=== PATIENT | female | born 1975 | race Hispanic/Latino ===

== ENCOUNTER 2018-04-27 12:39 | Emergency (ER) | payer BC ==
[~2018-04-27] VITALS: Ht 170.2 cm; Wt 81.6 kg
[~2018-04-27 12:39] MED LIST: AMLODIPINE BESYL5 MG PO
--- OUTSIDE RECORDS SUMMARY | 2018-04-27 12:41 | XMS REPORT | Clinical Summary ---
Author Author [facility] Organization [facility] Address Unknown Phone Unavailable Care Team Providers Care Tooth Cutter Spur Name Role Phone Asked, No Pcp PCP Unavailable Allergies No Known Allergies Medications End Date Status Medication Sig Dispensed Refills Start Date 08/03/2017 cephalexin (KEFLEX) 500 Take 1 40 capsule 0 MG capsule capsule (500 8 mg total) by mouth 4 (four) times a day for 10 days. 08/23/2017 promethazine (PHENERGAN) Take 1 tablet 30 tablet 0 12.5 MG tablet (12.5 mg 8 total) by mouth every 6 (six) hours as needed for nausea or vomiting for up to 30 days. Active Problems Not on file Encounters Care Team Description Date Type Specialty Lynn Leonardo MD ABDOMINOPLASTY 07/24/2017 Surgery Plastic Surgery Krish Bradshaw MD 07/24/2017 Anesthesia Plastic Surgery Event Lynn Leonardo MD 07/24/2017 Hospital Plastic Surgery Encounter Lynn Leonardo MD Preop testing (Primary Dx) 07/13/2017 Pre-Admit Pre-Admission Testing Testing Appointment after 04/26/2017 Social History Date Tobacco Use Types Packs/Day Years Used Never Smoker Smokeless Tobacco: Never Used Alcohol Use Drinks/Week oz/Week Comments No Sex Assigned at Date Recorded Not on file Industry Job Start Date Occupation Not on file Not on file Not on file Travel End Travel History Travel Start No recent travel history available. Last Filed Vital Signs Time Taken Vital Sign Reading 07/24/2017 5:35 PM CDT Blood Pressure 131/69 07/24/2017 5:35 PM CDT Pulse 99 07/24/2017 5:35 PM CDT Temperature 36.6 C (97.8 F) 07/24/2017 5:35 PM CDT Respiratory Rate 18 07/24/2017 5:35 PM CDT Oxygen Saturation 95% - Inhaled Oxygen - Concentration 07/24/2017 11:18 AM CDT Weight 90.7 kg (200 lb) 07/13/2017 10:58 AM CDT Height 172.7 cm (5' 8") 07/24/2017 11:18 AM CDT Body Mass Index 30.41 Plan of Treatment Health Maintenance Due Date Last Done Comments CERVICAL CANCER SCREENING 1998 INFLUENZA VACCINE 11/18/2017 Implants Device Identifier Shelf Expiration Date Model / Serial / Lot Implanted Type Area Manufactur er [id number] / / Drain Wound Hbls Round Radopaq Surgical N/A: N/A ETHICON Trocar Cathleen White 0.18in 15fr - Implants; DIV OF [id number] Expanders; KHALIF & Implanted: Qty: 1 on 07/24/2017 by Extenders; Lynn Monaco MD Surgical Wires 05/20/2022 [id number] / / [id number] Evacuator Bulb Cathleen 100cc Ltxf - Surgical N/A: N/A BARD [id number] Implants; MEDICAL Implanted: Qty: 1 on 07/24/2017 by Expanders; Lynn Garcia MD Extenders; Surgical Wires [id number] / / Drain Wound Hbls Round Radopaq Surgical N/A: N/A ETHICON Trocar Cathleen White 0.18in 15fr - Implants; DIV OF [id number] Expanders; KHALIF & Implanted: Qty: 1 on 07/24/2017 by Extenders; Lynn Monaco MD Surgical Wires 03/20/2022 [id number] / / [id number] Evacuator Bulb Cathleen 100cc Ltxf - Surgical N/A: N/A BARD [id number] Implants; MEDICAL Implanted: Qty: 1 on 07/24/2017 by Expanders; Lynn Garcia MD Extenders; Surgical Wires Procedures Comments Procedure Name Priority Date/Time Associated Diagnosis OR AN ELECTIVE Routine 07/24/2017 ENDOTRACHEAL AIRWAY 12:55 PM CDT Procedure Note - Zenaida Norman CRNA - 07/24/2017 12:55 PM CDT Airway Date/Time: 07/24/2017 12:57 PM Performed by: ZENAIDA NORMAN Authorized by: KRISH BRADSHAW Location: OR Urgency: Elective Difficult Airway: No Preoxygena gómez with 100% O2: Yes C-spine Precaution s Maintained Throughout : Yes Mask Ventilatio n: Assisted mask Final Airway Type: Endotrache al airway Final Endotrache al Airway: ETT Cuffed: Yes Technique Used: Direct laryngosco py Blade Type: Rollins Laryngosco pe Blade/Vide olaryngosc ope Blade Size: 2 ETT Size (mm): 7.0 Cuff at minimum occlusion pressure: Yes Measured from: Lips ETT to Lips (cm): 23 Placement Verified by: CO2 detection and direct visualizat ion Laryngosco pic view: Grade IIa - partial view of glottis Rapid Sequence Induction (RSI): No Modified RSI: No Number of Attempts at Approach: 1 LIPOSUCTION 07/24/2017 EXCESS SKIN ABDOMEN, 12:30 PM CDT L98.7 Case Notes TF, REQ 1230 START, PLAS PKG REQ 2.5 HRS( CANNOT WORK EARLIER) Special Needs TF, REQ 1230 START, PLAS PKG REQ 2.5 HRS(MD CANNOT WORK EARLIER) ABDOMINOPLASTY 07/24/2017 EXCESS SKIN ABDOMEN, 12:30 PM CDT L98.7 Case Notes TF, REQ 1230 START, PLAS PKG REQ 2.5 HRS(MD CANNOT WORK EARLIER) Special Needs TF, REQ 1230 START, PLAS PKG REQ 2.5 HRS(MD CANNOT WORK EARLIER) ZZESTIMATED GFR Routine 07/13/2017 11:07 AM CDT BASIC METABOLIC PANEL Routine 07/13/2017 Preop testing 11:07 AM CDT CBC HEMOGRAM Routine 07/13/2017 Preop testing 11:07 AM CDT after 04/26/2017 Results * Estimated GFR (07/13/2017 11:07 AM CDT) GFR Non Af Amer 80 mL/min/1.73 m2 [facility] DEPARTMENT OF PATHOLOGY AND GENOMIC MEDICINE GFR Af Amer >90 mL/min/1.73 m2 [facility] DEPARTMENT OF Comment: PATHOLOGY AND Chronic kidney disease: <60 GENOMIC MEDICINE mL/min/1.73m2 Kidney failure: <15 mL/min/1.73m2 The estimated GFR is calculated from the IDMS-traceable Modification of Diet in Renal Disease Equation. The accuracy of the calculation is poor when the creatinine is normal. Calculated values >90 mL/min/1.73m2 are not reported. This equation has not been validated in children (<18 years), women, the elderly (>70 years), or ethnic groups other than Caucasians and Americans. Specimen Plasma specimen Performing Organization Address [facility] Phone Number [address] [address] PATHOLOGY AND GENOMIC MEDICINE * CBC hemogram (07/13/2017 11:07 AM CDT) WBC 10.12 4.50 - 11.00 k/uL [facility] DEPARTMENT OF PATHOLOGY AND GENOMIC MEDICINE RBC 4.67 4.20 - 5.50 m/uL [facility] DEPARTMENT OF PATHOLOGY AND GENOMIC MEDICINE HGB 14.1 12.0 - 16.0 g/dL [facility] DEPARTMENT OF PATHOLOGY AND GENOMIC MEDICINE HCT 43.6 37.0 - 47.0 % [facility] DEPARTMENT OF PATHOLOGY AND GENOMIC MEDICINE MCV 93.4 82.0 - 100.0 fL [facility] DEPARTMENT OF PATHOLOGY AND GENOMIC MEDICINE MCH 30.2 27.0 - 34.0 pg [facility] DEPARTMENT OF PATHOLOGY AND GENOMIC MEDICINE MCHC 32.3 31.0 - 37.0 g/dL [facility] DEPARTMENT OF PATHOLOGY AND GENOMIC MEDICINE RDW - SD 44.7 37.0 - 55.0 fL [facility] DEPARTMENT OF PATHOLOGY AND GENOMIC MEDICINE MPV 9.5 8.8 - 13.2 fL [facility] DEPARTMENT OF PATHOLOGY AND GENOMIC MEDICINE Platelet count 452 (H) 150 - 400 k/uL [facility]PARTMENT OF PATHOLOGY AND GENOMIC MEDICINE Nucleated RBC 0.00 /100 WBC [facility] DEPARTMENT OF PATHOLOGY AND GENOMIC MEDICINE Specimen Blood Performing Organization Address City/[facility] Phone Number [address] [address] PATHOLOGY AND GENOMIC MEDICINE * Basic metabolic panel (07/13/2017 11:07 AM CDT) Sodium 140 135 - 148 mEq/L [facility] DEPARTMENT OF PATHOLOGY AND GENOMIC MEDICINE Potassium 4.5 3.5 - 5.0 mEq/L [facility] DEPARTMENT OF PATHOLOGY AND GENOMIC MEDICINE Chloride 98 98 - 112 mEq/L [facility] DEPARTMENT OF PATHOLOGY AND GENOMIC MEDICINE CO2 29 24 - 31 mEq/L [facility] DEPARTMENT OF PATHOLOGY AND GENOMIC MEDICINE Anion gap 13 7 - 15 mEq/L [facility] DEPARTMENT OF Comment: PATHOLOGY AND Starting from July GENOMIC MEDICINE , anion gap calculation no longer incorporates potassium. Please note the change. BUN 7 6 - 20 mg/dL [facility] DEPARTMENT OF PATHOLOGY AND GENOMIC MEDICINE Creatinine 0.8 0.5 - 0.9 mg/dL [facility] DEPARTMENT OF PATHOLOGY AND GENOMIC MEDICINE Glucose 102 (H) 65 - 99 mg/dL [facility] DEPARTMENT OF PATHOLOGY AND GENOMIC MEDICINE Calcium 9.8 8.3 - 10.2 mg/dL [facility] DEPARTMENT OF PATHOLOGY AND GENOMIC MEDICINE Specimen Plasma specimen Performing Organization Address City/State/Zipcode Phone Number [facility] DEPARTMENT OF [address] [place] [phone] PATHOLOGY AND GENOMIC MEDICINE after 04/26/2017 Advance Directives Patient has advance care planning documents on file. For more information, mildred dukes contact: Rob Cortez [address] [place] [address]
[2018-04-27] MEDS ORDERED: LABETALOL HCL 5 MG/ML 20ML VIAL IV STA (12:42)
[2018-04-27] MEDS ORDERED: LORAZEPAM INJ 2 MG/ML VIAL IV ONE ×2 (12:45→15:00)
--- NOTE | 2018-04-27 14:34 | Diagnostic Imaging Report ---
EXAMINATION: CHEST 2 VIEWS INDICATION: ^chest pain ^[id number] ^1320 COMPARISON: 04/24/2018 FINDINGS: PA and lateral views TUBES and LINES: None. LUNGS: Limited by body habitus. Lungs are well inflated. There is no evidence of pneumonia or pulmonary edema. PLEURA: No pleural effusion or pneumothorax. HEART AND MEDIASTINUM: The cardiomediastinal silhouette is unremarkable. BONES AND SOFT TISSUES: No acute osseous lesion. Soft tissues are unremarkable. UPPER ABDOMEN: No free air under the diaphragm. IMPRESSION: No acute thoracic abnormality. Signed by: Dr. Trenton Maria MD on 04/27/2018 2:30 PM
[2018-04-27] MEDS ORDERED: KETOROLAC TROMETHAMINE 30 MG/ML VIAL IV STA (14:52)
[2018-04-27] MEDS ORDERED: METHOCARBAMOL 500 MG TAB PO ONE (15:00)
[2018-04-27 15:04] LABS: BASOPHILS # (AUTO) 0.1 (0.0-0.1); BASOPHILS % 0.5 % (0.0-1.0); EOSINOPHILS % 0.2 % (0.0-6.0); HEMATOCRIT 41.8 % (34.2-44.1); HEMOGLOBIN 14.7 g/dL (12.0-16.0); LYMPHOCYTES # (AUTO) 2.3 (1.0-3.2); LYMPHOCYTES % 18.2 % (18.0-39.1); MEAN CORPUSCULAR HEMOGLOBIN 30.8 pg (28-32); MEAN CORPUSCULAR HGB CONC 35.2 g/dL (31-35); MEAN CORPUSCULAR VOLUME 87.4 fL (81-99); MONOCYTES # (AUTO) 0.8 (0.2-0.8); MONOCYTES % 6.5 % (4.4-11.3); NEUTROPHILS # (AUTO) 9.4 (2.1-6.9); NEUTROPHILS % 74.2 % (38.7-80.0); PLATELET COUNT 527 x10e3/uL (140-360); RED BLOOD COUNT 4.78 x10e6/uL (3.6-5.1); RED CELL DISTRIBUTION WIDTH 12.4 % (11.7-14.4)
[2018-04-27 15:43] LABS: ALANINE AMINOTRANSFERASE 35 IU/L (0-55); ALBUMIN 4.1 g/dL (3.5-5.0); ALBUMIN/GLOBULIN RATIO 1.1 (0.8-2.0); ALKALINE PHOSPHATASE 105 IU/L (40-150); ANION GAP 14.2 mmol/L (8-16); BLOOD UREA NITROGEN 5 mg/dL (7-26); BUN/CREATININE RATIO 6 (6-25); CALCIUM 10.2 mg/dL (8.4-10.2); CARBON DIOXIDE 22 mmol/L (22-29); CHLORIDE 104 mmol/L (98-107); CREATININE, SERUM 0.88 mg/dL (0.57-1.11); EST GLOMERULAR FILTRATION RATE > 60 ML/MIN (60-); GLUCOSE 111 mg/dL (74-118); POTASSIUM 4.2 mmol/L (3.5-5.1); SODIUM 136 mmol/L (136-145)
--- NOTE | 2018-04-27 15:46 | Diagnostic Imaging Report ---
EXAM: Renal Duplex Ultrasound INDICATION: ^Malignant Hypertension ^[id number] ^1351 COMPARISON: None TECHNIQUE: Color Doppler and waveform spectral analysis were obtained of the renal vessels and abdominal aorta. FINDINGS: Aorta PSV = 40 cm/sec Right Kidney: Main renal artery PSV: Ostium not visualized, limiting evaluation. Mid = 79.4 cm/sec Distal = 109 cm/sec Intrarenal (segmental or interlobar) arteries: Acceleration time: Normal Resistive index: Normal RA PSV/aorta PSV ratio (RAR) = 2.7 Left Kidney: Main renal artery PSV: Ostium not visualized, limiting evaluation. Mid = 44.9 cm/sec Distal = 77.8 cm/sec Intrarenal (segmental or interlobar) arteries: Acceleration time: Normal Resistive index: Normal RA PSV/aorta PSV ratio (RAR) = 1.9 Main Renal Veins: Flow Present IMPRESSION: Nonvisualization of the proximal abdominal aorta and proximal bilateral renal arteries, extremely limits evaluation for renal artery stenosis. No renal artery stenosis based on mid to distal portion of the renal artery velocity ratios. Signed by: Dr. Trenton Maria MD on 04/27/2018 3:42 PM
== END 2018-04-27 18:08 | disposition home or self-care (01) ==
LOC: ER 12:39
DX: R07.89 Other chest pain (principal); R06.02 Shortness of breath; I10 Essential (primary) hypertension
CPT/HCPCS: 36415; 71046; 80053; 84484; 85025; 93005; 93976; 99284; J1885; J2060

== ENCOUNTER 2018-10-18 23:04 | Emergency (ER) | payer BC ==
[~2018-10-18] VITALS: Ht 170.2 cm; Wt 81.6 kg
--- OUTSIDE RECORDS SUMMARY | 2018-10-18 23:06 | XMS REPORT | Clinical Summary ---
Author Author [facility] Organization [facility] Address Unknown Phone Unavailable Care Team Providers Care Computer Installation Engineer Name Role Phone Asked, No Pcp PCP Unavailable Allergies No Known Allergies Medications No known medications Active Problems Not on file Social History Date Tobacco Use Types Packs/Day Years Used Never Smoker Smokeless Tobacco: Never Used Alcohol Use Drinks/Week oz/Week Comments No Sex Assigned at Date Recorded Not on file Industry Job Start Date Occupation Not on file Not on file Not on file Travel End Travel History Travel Start No recent travel history available. Last Filed Vital Signs Not on file Plan of Treatment Health Maintenance Due Date Last Done Comments INFLUENZA VACCINE 11/18/2018 Implants Device Identifier Shelf Expiration Date Model / Serial / Lot Implanted Type Area Manufactur er 2229 / / Drain Wound Hbls Round Radopaq Surgical N/A: N/A ETHICON Trocar Cathleen White 0.18in 15fr - Implants; DIV OF [id number] ExpandersReta CUADRA & Implanted: Qty: 1 on 07/24/2017 by ExtendLynn Friend MD Surgical Wires 05/20/2022 [id number] / / [id number] Evacuator Bulb Cathleen 100cc Ltxf - Surgical N/A: N/A BARD [id number] Implants; MEDICAL Implanted: Qty: 1 on 07/24/2017 by Expandluc; Lynn Garcia MD Extendluc; Surgical Wires [id number] / / Drain Wound Hbls Round Radopaq Surgical N/A: N/A ETHICON Trocar Cathleen White 0.18in 15fr - Implants; DIV OF [id number] Expandtonya CUADRA & Implanted: Qty: 1 on 07/24/2017 by Lynn Keenan MD Surgical Wires 03/20/2022 [id number] / / [id number] Evacuator Bulb Cathleen 100cc Ltxf - Surgical N/A: N/A BARD [id number] Implants; MEDICAL Implanted: Qty: 1 on 07/24/2017 by Expanders; DIVISION Lynn Leonardo MD Extenders; Surgical Wires Results Not on fileafter 10/17/2017 Advance Directives Patient has advance care planning documents on file. For more information, mildred dukes contact: Rob Cortez [address] [place] [address]
--- OUTSIDE RECORDS SUMMARY | 2018-10-18 23:06 | XMS REPORT | Continuity of Care Document ---
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 Phone [employer] Information [employer] Unavailable Unavailable Problems Problem Status Onset Date Classification Date Reported Comments Source Body mass index 30+ - obesity 05/20/2018 Diagnosis 05/20/2018 [facility] Immunization due 05/20/2018 Diagnosis 05/20/2018 [facility] Generalized aches and pains 05/20/2018 Diagnosis 05/20/2018 [facility] Acute sinusitis 05/20/2018 Diagnosis 05/20/2018 [facility] Allergic reaction to drug 08/18/2017 Diagnosis 08/18/2017 [facility] Pruritic rash 08/18/2017 Diagnosis 08/18/2017 [facility] Acute pyelonephritis 03/14/2017 Diagnosis 03/14/2017 [facility] Acute tonsillitis 06/28/2016 Diagnosis 07/01/2016 [facility] Cough 06/28/2016 Diagnosis 07/01/2016 [facility] Acute upper respiratory infection 06/18/2016 Diagnosis 07/01/2016 [facility] Acute pharyngitis 06/18/2016 Diagnosis 07/01/2016 [facility] Urinary tract infectious disease 12/21/2015 Diagnosis 12/21/2015 [facility] ROUTINE GENERAL MEDICAL EXAMINATION AT A HEALTH CARE FACILITY Active 04/27/2014 Condition 05/12/2014 [facility] BODY MASS INDEX 29.0-29.9, ADULT Active 04/27/2014 Condition 05/12/2014 [facility] GRIEF REACTION Active 04/27/2014 Condition 05/12/2014 [facility] ROUTINE GYNECOLOGICAL EXAMINATION Active 03/15/2013 Condition 05/12/2014 [facility] MENORRHAGIA Active 03/15/2013 Condition 05/12/2014 [facility] Acute Otitis Externa Problem 03/14/2017 [facility] Acute Sinusitis Problem 03/14/2017 [facility] Pharyngitis Problem 03/14/2017 [facility] Allergic Rhinitis Problem 03/14/2017 [facility] Bronchitis Problem 03/14/2017 [facility] Urinary Tract Infectious Disease Problem 03/14/2017 [facility] Uterine leiomyoma, unspecified location Active Problem 09/11/2018 [facility] Abnormal cervical Papanicolaou smear, unspecified abnormal pap finding Active Problem 09/11/2018 [facility] Essential hypertension Active Problem 09/11/2018 [facility] Hyperglycemia Active Diagnosis 06/17/2018 [facility] Thrombocytosis Active Problem 09/11/2018 [facility] Hypergammaglobulinemia Active Problem 09/11/2018 [facility] BMI 32.0-32.9,adult Active Problem 09/11/2018 [facility] Hand, foot and mouth disease Active Diagnosis 09/07/2016 [facility] Itching Active Diagnosis 09/07/2016 [facility] Non morbid obesity due to excess calories Active Diagnosis 06/30/2017 [facility] Acute bronchitis, unspecified organism Active Diagnosis 09/11/2018 [facility] Labile hypertension Active Diagnosis 05/24/2018 [facility] Hypertensive emergency, no CHF Active Problem 04/28/2018 [facility] Medications Medication Details Route Status Patient Instructions Ordering Provider Order Date Source Bromfed DM 5 mL orally Active 2 mg-10 mg-30 mg/5 mL orally q6 hours prn cough Yanes 09/04/2016 [facility] Bromfed DM 5 mL orally Active 2 mg-10 mg-30 mg/5 mL orally q6 hours prn cough [facility] 09/04/2016 [facility] ERGOCALCIFEROL [id number] UNIT CAPS Take 1 capsule weekly Active 05/22/2014 [facility] QUARTETTE 42-21-21-7 DAYS TABS One tab by mouth daily No Longer Active 03/15/2013 [facility] Amoxicillin 875 MG Oral Tablet amoxicillin 875 mg tablet TK 1 T PO Q 12 H DIRECTED Active [facility] Azithromycin 250 MG Oral Tablet azithromycin 250 mg tablet TAKE 2 TABLETS (500 MG) BY ORAL ROUTE ONCE DAILY FOR 1 DAY THEN 1 TABLET (250 MG) BY ORAL ROUTE ONCE DAILY FOR 4 DAYS Active [facility] benzonatate 200 MG Oral Capsule benzonatate 200 mg capsule TK 1 C PO Q 8 H PRN FOR COUGH Active [facility] Brompheniramine Maleate 0.4 MG/ML / Dextromethorphan Hydrobromide 2 MG/ML / Pseudoephedrine Hydrochloride 6 MG/ML Oral Solution [Bromfed DM] Bromfed DM 2 mg-30 mg-10 mg/5 mL syrup Take 10 mL every 4-6 hours by oral route as needed. Active [facility] Cyclobenzaprine hydrochloride 10 MG Oral Tablet cyclobenzaprine 10 mg tablet TK 1 T PO TID Active [facility] Acetaminophen 325 MG / Hydrocodone Bitartrate 10 MG Oral Tablet hydrocodone 10 mg-acetaminophen 325 mg tablet TK 1 T PO Q 6 TO 8 H PRF PAIN Active [facility] Lidocaine Hydrochloride 20 MG/ML Mucous Membrane Topical Solution Lidocaine Viscous 2 % mucosal solution Take 15 mL every 3 hours by oral route as needed. Active [facility] meloxicam 15 MG Oral Tablet meloxicam 15 mg tablet TK 1 T PO QD Active [facility] methylprednisolone 4 mg tablets in a dose pack methylprednisolone 4 mg tablets in a dose pack Take 1 dose pk by oral route as directed. start 08/19/2017 Active [facility] Prednisone 20 MG Oral Tablet prednisone 20 mg tablet TK 1 T PO BID WITH MEALS FOR 3 DAYS Active [facility] 200 ACTUAT Albuterol 0.09 MG/ACTUAT Metered Dose Inhaler [ProAir] ProAir HFA 90 mcg/actuation aerosol inhaler TK 2 PUFFS PO Q 4 H PRN Active [facility] tizanidine 4 MG Oral Tablet tizanidine 4 mg tablet TK 1 T PO 8 H Active [facility] Fluticasone propionate 0.25 MG/ACTUAT / salmeterol 0.05 MG/ACTUAT Dry Powder Inhaler Advair Diskus 250 mcg-50 mcg/dose powder for inhalation INHALE ONE PUFF PO BID Active [facility] Amoxicillin 500 MG / Clavulanate 125 MG Oral Tablet amoxicillin 500 mg-potassium clavulanate 125 mg tablet TK 1 T PO TID FOR 10 DAYS Active [facility] Ampicillin 500 MG Oral Capsule ampicillin 500 mg capsule TK 1 C PO BID FOR 7 DAYS Active [facility] Cephalexin 500 MG Oral Capsule cephalexin 500 mg capsule TK 1 C PO TID Active [facility] Ciprofloxacin 3 MG/ML / Dexamethasone 1 MG/ML Otic Suspension [Ciprodex] Ciprodex 0.3 %-0.1 % ear drops,suspension INSTILL 4 DROPS INTO AFFECTED EAR(S) BY OTIC ROUTE 2 TIMES PER DAY FOR 7 DAYS Active [facility] Ciprofloxacin 500 MG Oral Tablet ciprofloxacin 500 mg tablet TK 1 T PO BID Active [facility] Fluticasone propionate 0.05 MG/ACTUAT Metered Dose Nasal [place] fluticasone 50 mcg/actuation nasal spray,suspension [place] 1 spray every day by intranasal route. Active [facility] gabapentin 300 MG Oral Capsule gabapentin 300 mg capsule Active [facility] NITROFURANTOIN, MACROCRYSTALS 25 MG / Nitrofurantoin, Monohydrate 75 MG Oral Capsule [Macrobid] Macrobid 100 mg capsule Take 1 capsule every 12 hours by oral route with meals for 7 days. Active [facility] Phenazopyridine hydrochloride 200 MG Oral Tablet phenazopyridine 200 mg tablet Take 1 tablet 3 times a day by oral route as needed for urinary discomfort. Active [facility] Promethazine Hydrochloride 25 MG Oral Tablet promethazine 25 mg tablet TK 1 T PO Q 4 TO 6 H PRF NAUSEA Active [facility] tramadol hydrochloride 50 MG Oral Tablet tramadol 50 mg tablet TK 1 TO 2 TS PO 30 MINUTES BEFORE APPOINTMENT THEN TAKE 1 T Q 6 H PRN Active [facility] 200 ACTUAT Albuterol 0.09 MG/ACTUAT Metered Dose Inhaler albuterol sulfate HFA 90 mcg/actuation aerosol inhaler Inhale 2 puffs every 4 hours by inhalation route as needed. Active [facility] 1 ML methylprednisolone acetate 80 MG/ML Injection [Depo-Medrol] Depo-Medrol 80 mg/mL suspension for injection 80 mg/mL IM injectable x 1 Active [facility] Hydroxyzine Hydrochloride 25 MG Oral Tablet hydroxyzine HCl 25 mg tablet Take 1 tablet every 6-8 hours by oral route as needed. Active [facility] Brompheniramine Maleate 0.4 MG/ML / Dextromethorphan Hydrobromide 2 MG/ML / Pseudoephedrine Hydrochloride 6 MG/ML Oral Solution afulczckpxcbgrt-xahnznlaqvvxgzs-[id number] 2 mg-30 mg-10 mg/5 mL syrup TK 5 ML PO Q 6 H PRF COUGH Active [facility] Ciprofloxacin 500 MG Oral Tablet [Cipro] Cipro 500 mg tablet Take 1 tablet every 12 hours by oral route as directed for 7 days. Active [facility] Diclofenac Sodium 1 MG/ML Ophthalmic Solution diclofenac 0.1 % eye drops INT 1 GTT IN EACH EYE BID Active [facility] Diclofenac Sodium 0.01 MG/MG Topical Gel diclofenac 1 % topical gel IMER EXT AA QID FOR 7 DAYS PRF PAIN Active [facility] Fluconazole 150 MG Oral Tablet [Diflucan] Diflucan 150 mg tablet Take 1 tablet by oral route. Active [facility] Ondansetron 8 MG Disintegrating Oral Tablet ondansetron 8 mg disintegrating tablet DIS ONE T PO BID PRN Active [facility] Phenazopyridine hydrochloride 100 MG Oral Tablet [Pyridium] Pyridium 100 mg tablet Take 1 tablet 3 times a day by oral route as directed for 2 days. Active [facility] Triamcinolone Acetonide 1 MG/ML Topical Cream triamcinolone acetonide 0.1 % topical cream IMER AA TID X7 DAYS Active [facility] Prednisone 10 MG Oral Tablet prednisone 10 mg tablet Take 1 tablet every day by oral route for 5 days. Active [facility] benzonatate 100 MG Oral Capsule [Tessalon Perles] Tessalon Perles 100 mg capsule Take 1 capsule 3 times a day by oral route for 7 days. Active [facility] Metoprolol Succinate ER 1 tab(s) orally Active 25 mg orally once a day [facility] carvedilol 1 tab(s) orally Active 12.5 mg orally 2 times a day [facility] amlodipine 1 tab(s) orally Active 2.5 mg orally twice a day [facility] losartan 1 tab(s) orally Active 50 mg orally once a day [facility] triamcinolone topical 1 imer applied topically to affected areas Active 0.1% applied topically to affected areas 3 times a day [facility] hydroxyzine 1 tab(s) orally Active hydrochloride 25 mg orally once a day at night prn itching [facility] triamcinolone topical 1 imer applied topically to affected areas Active 0.1% applied topically to affected areas 3 times a day [facility] hydroxyzine 1 tab(s) orally Active hydrochloride 25 mg orally once a day at night prn itching [facility] cefdinir 1 cap(s) orally Active 300 mg orally every 12 hours [facility] Z-pack use as directed NA Active daily [facility] Cheratussin AC 5-10 mL orally Active 10 mg-100 mg/5 mL orally every 6 hours prn cough [facility] ProAir HFA 2 puff(s) inhaled Active [facility] free 90 mcg/inh inhaled q4-6 hours prn wheezing [facility] amlodipine 1 tab(s) orally Active 5 mg orally twice a day [facility] Amlodipine Besylate 5 Mg Tablet Every [address] [facility] Allergies, Adverse Reactions, Alerts Substance Category Reaction Severity Reaction type Status Date Reported Comments Source BETADINE Drug allergy BETADINE 04/27/2014 [facility] Clindamycin Rash Moderate to Severe Allergy to substance 08/18/2017 [facility] Adverse Reaction Info Not Available Adverse Reaction Active 09/06/2018 [facility] Immunizations Immunization Date Given Site Status Last Updated Comments Source influenza, seasonal, injectable 05/21/2015 completed [facility] Tdap 05/20/2008 completed [facility] Results Order Name Results Value Reference Range Date Interpretation Comments Source RESULT negative 05/20/2018 [facility] SWAB LOCATION Left and Right tonsillar pillars 05/20/2018 [facility] Influenza A negative 05/20/2018 [facility] Influenza B negative 05/20/2018 [facility] Serum or plasma sodium measurement (moles/volume) 136 136 - 145 04/27/2018 [facility] Serum or plasma potassium measurement (moles/volume) 4.2 3.5 - 5.1 04/27/2018 [facility] Serum or plasma chloride measurement (moles/volume) 104 98 - 107 04/27/2018 [facility] Serum or plasma carbon dioxide, total measurement (moles/volume) 22 22 - 29 04/27/2018 [facility] Serum or plasma anion gap 14.2 8 - 16 04/27/2018 [facility] Serum or plasma urea nitrogen measurement (mass/volume) 5 7 - 26 04/27/2018 [facility] Serum or plasma creatinine measurement (mass/volume) 0.88 0.57 - 1.11 04/27/2018 [facility] Serum or plasma urea nitrogen/creatinine mass ratio 6 6 - 25 04/27/2018 [facility] Estimated glomerular filtration rate (GFR) determination > 60 60 04/27/2018 [facility] Glucose measurement 111 74 - 118 04/27/2018 [facility] Serum or plasma calcium measurement (mass/volume) 10.2 8.4 - 10.2 04/27/2018 [facility] Serum or plasma total bilirubin measurement (mass/volume) 1.0 0.2 - 1.2 04/27/2018 [facility] Aspartate Amino Transf (AST/SGOT) 19 5 - 34 04/27/2018 [facility] Serum or plasma alanine aminotransferase measurement (enzymatic activity/volume) 35 0 - 55 04/27/2018 [facility] Serum or plasma protein measurement (mass/volume) 7.8 6.5 - 8.1 04/27/2018 [facility] Serum or plasma albumin measurement (mass/volume) 4.1 3.5 - 5.0 04/27/2018 [facility] Plasma globulin measurement (mass/volume) 3.7 2.3 - 3.5 04/27/2018 [facility] Serum or plasma albumin/globulin mass ratio 1.1 0.8 - 2.0 04/27/2018 [facility] Serum or plasma alkaline phosphatase measurement (enzymatic activity/volume) 105 40 - 150 04/27/2018 [facility] Troponin I measurement by highly sensitive enzyme immunoassay 0.002 0 - 0.300 04/27/2018 [facility] Blood leukocytes automated count (number/volume) 12.64 4.8 - 10.8 04/27/2018 [facility] Blood erythrocytes automated count (number/volume) 4.78 3.6 - 5.1 04/27/2018 [facility] Blood hemoglobin measurement (moles/volume) 14.7 12.0 - 16.0 04/27/2018 [facility] Automated blood hematocrit (volume fraction) 41.8 34.2 - 44.1 04/27/2018 [facility] Automated erythrocyte mean corpuscular volume 87.4 81 - 99 04/27/2018 [facility] Automated erythrocyte mean corpuscular hemoglobin (mass per erythrocyte) 30.8 28 - 32 04/27/2018 [facility] Automated erythrocyte mean corpuscular hemoglobin concentration measurement (mass/volume) 35.2 31 - 35 04/27/2018 [facility] RDW BldCo-Rto 12.4 11.7 - 14.4 04/27/2018 [facility] Automated blood platelet count (count/volume) 527 140 - 360 04/27/2018 [facility] Automated blood segmented neutrophil count as percentage of total leukocytes 74.2 38.7 - 80.0 04/27/2018 [facility] Automated blood lymphocyte count as percentage ot total leukocytes 18.2 18.0 - 39.1 04/27/2018 [facility] Automated blood monocyte count as percentage of total leukocytes 6.5 4.4 - 11.3 04/27/2018 [facility] Automated blood eosinophil count as percentage of total leukocytes 0.2 0.0 - 6.0 04/27/2018 [facility] Automated blood basophil count as percentage of total leukocytes 0.5 0.0 - 1.0 04/27/2018 [facility] IM GRANULOCYTES % 0.4 0.0 - 1.0 04/27/2018 [facility] Automated blood neutrophil count 9.4 2.1 - 6.9 04/27/2018 [facility] Blood lymphocytes count (number/volume) 2.3 1.0 - 3.2 04/27/2018 [facility] Blood monocytes automated count (number/volume) 0.8 0.2 - 0.8 04/27/2018 [facility] Automated blood eosinophil count 0.0 0.0 - 0.4 04/27/2018 [facility] Automated blood basophil count (count/volume) 0.1 0.0 - 0.1 04/27/2018 [facility] Absolute Immature Granulocyte (auto 0.05 0 - 0.1 04/27/2018 [facility] Serum or plasma creatine kinase measurement (enzymatic activity/volume) 36 29 - 168 04/24/2018 [facility] Serum or plasma creatine kinase MB measurement (mass/volume) 0.30 0 - 5.0 04/24/2018 [facility] Phosphorus measurement 4.7 2.3 - 4.7 04/24/2018 [facility] Serum or plasma magnesium measurement (mass/volume) 2.2 1.3 - 2.1 04/24/2018 [facility] Urine color determination YELLOW YELLOW 04/23/2018 [facility] Urine clarity CLEAR CLEAR 04/23/2018 [facility] Specific gravity of Urine by Test strip 1.010 1.010 - 1.025 04/23/2018 [facility] Urine pH measurement by automated test strip 7 5 - 7 04/23/2018 [facility] Urine leukocyte esterase detection by dipstick NEGATIVE NEGATIVE 04/23/2018 [facility] Urine nitrite detection NEGATIVE NEGATIVE 04/23/2018 [facility] Urine protein measurement by test strip (mass/volume) NEGATIVE NEGATIVE 04/23/2018 [facility] Urine glucose detection NEGATIVE NEGATIVE 04/23/2018 [facility] Urine ketones detection by automated test strip NEGATIVE NEGATIVE 04/23/2018 [facility] Urine opiates screening test NEGATIVE NEGATIVE 04/23/2018 [facility] Barbiturates screen, urine NEGATIVE NEGATIVE 04/23/2018 [facility] Urine phencyclidine detection by screening method NEGATIVE NEGATIVE 04/23/2018 [facility] Urine amphetamines detection by screen method > 1000 ng/mL NEGATIVE NEGATIVE 04/23/2018 [facility] Urine Methamphetamines Screen NEGATIVE NEGATIVE 04/23/2018 [facility] Urine benzodiazepines detection by screening method NEGATIVE NEGATIVE 04/23/2018 [facility] Urine cocaine measurement (mass/volume) NEGATIVE NEGATIVE 04/23/2018 [facility] Urine cannabinoids detection by screening method NEGATIVE NEGATIVE 04/23/2018 [facility] Urine methadone screen NEGATIVE NEGATIVE 04/23/2018 [facility] Urine urobilinogen measurement by test strip (mass/volume) 0.2 0.2 - 1 04/23/2018 [facility] Urine total bilirubin measurement (mass/volume) NEGATIVE NEGATIVE 04/23/2018 [facility] Urine erythrocytes detection NEGATIVE NEGATIVE 04/23/2018 [facility] Automated urine sediment leukocyte count by microscopy (number/high power field) NONE 0 - 5 04/23/2018 [facility] Erythrocytes detection in urine sediment by light microscopy NONE 0 - 5 04/23/2018 [facility] Bacteria detection in urine sediment by light microscopy MODERATE NONE 04/23/2018 [facility] Epithelial cells detection in urine sediment by light microscopy MANY NONE 04/23/2018 [facility] Urine human chorionic gonadotropin (hCG) detection NEGATIVE NEGATIVE 04/23/2018 [facility] Serum or plasma thyrotropin measurement by detection limit <=0.005 miu/l (units/volume) 1.779 0.350 - 4.940 04/23/2018 [facility] Bacteria identified in Throat by Culture Bacteria identified in Unspecified specimen by Respiratory culture final report 06/30/2016 [facility] Bacteria identified in Throat by Culture Bacteria identified in Unspecified specimen by Respiratory culture rrf 06/30/2016 [facility] RESULT negative 06/28/2016 [facility] SWAB LOCATION Left and Right tonsillar pillars 06/28/2016 [facility] Influenza A negative 06/28/2016 [facility] Influenza B negative 06/28/2016 [facility] RESULT negative 06/28/2016 [facility] SWAB LOCATION Left and Right tonsillar pillars 06/28/2016 [facility] RESULT negative 06/18/2016 [facility] SWAB LOCATION Left and Right tonsillar pillars 06/18/2016 [facility] Influenza A negative 06/18/2016 [facility] Influenza B negative 06/18/2016 [facility] Urinalysis macro (dipstick) panel - Urine COLOR : Yellow 12/21/2015 [facility] Urinalysis macro (dipstick) panel - Urine CLARITY : Cloudy 12/21/2015 [facility] Urinalysis macro (dipstick) panel - Urine LEUKOCYTES : Large 12/21/2015 [facility] Urinalysis macro (dipstick) panel - Urine NITRITES : Positive 12/21/2015 [facility] Urinalysis macro (dipstick) panel - Urine UROBILINOGEN : Normal 12/21/2015 [facility] Urinalysis macro (dipstick) panel - Urine PROTEIN : Trace 12/21/2015 [facility] Urinalysis macro (dipstick) panel - Urine pH : 8.5 12/21/2015 [facility] Urinalysis macro (dipstick) panel - Urine BLOOD : Negative 12/21/2015 [facility] Urinalysis macro (dipstick) panel - Urine SPECIFIC GRAVITY : 1.010 12/21/2015 [facility] Urinalysis macro (dipstick) panel - Urine KETONES : Negative 12/21/2015 [facility] Urinalysis macro (dipstick) panel - Urine BILIRUBIN : Negative 12/21/2015 [facility] Urinalysis macro (dipstick) panel - Urine GLUCOSE Negative 12/21/2015 [facility] Chemistry CHOLESTEROL 156 - 199 05/12/2014 [facility] Chemistry TRIGLYCERIDE 120 - 149 05/12/2014 [facility] Chemistry HDL 43 >=61 05/12/2014 [facility] Chemistry LDL 89 - 99 05/12/2014 [facility] Chemistry SODIUM 137 MEQ/L 135 - 145 05/12/2014 [facility] Chemistry POTASSIUM 4.5 MEQ/L 3.5 - 5.1 05/12/2014 [facility] Chemistry CREATININE 0.9 0.5 - 1.4 05/12/2014 [facility] Chemistry BUN 8 7 - 22 05/12/2014 [facility] Chemistry BUN/CREAT 9 6 - 25 05/12/2014 [facility] Chemistry ALBUMIN 4.1 3.5 - 5.0 05/12/2014 [facility] Chemistry CALCIUM 9.2 8.5 - 10.5 05/12/2014 [facility] Chemistry SGPT (ALT) 51 0 - 65 05/12/2014 [facility] Chemistry SGOT (AST) 31 0 - 37 05/12/2014 [facility] Chemistry ALK PHOS 132 39 - 136 05/12/2014 [facility] Chemistry TSH 0.651 0.360 - 3.740 05/12/2014 [facility] Hematology HGB 12.4 12.0 - 16.0 05/12/2014 [facility] Hematology HCT 36.7 36.0 - 48.0 05/12/2014 [facility] Hematology PLATELETS 382 K/CMM 133 - 450 05/12/2014 [facility] Residential [facility]umber PAP SMEAR 02/23/2012 03/15/2013 [facility] Residential [facility] PAP SMEAR 02/23/2012 03/15/2013 [facility] Pathology Reports No Data Provided for This Section Diagnostic Reports No Data Provided for This Section Consultation Notes No Data Provided for This Section Discharge Summaries No Data Provided for This Section History and Physicals No Data Provided for This Section Vital Signs Vital Sign Value Date Comments Source Systolic (mm Hg) 132 09/06/2018 [facility] Heart Rate 106 09/06/2018 [facility] Temperature Oral (F) 97.9 F 09/06/2018 [facility] Weight 203 09/06/2018 [facility] Height 66 09/06/2018 [facility] Diastolic (mm Hg) 80 09/06/2018 [facility] Systolic (mm Hg) 160 08/26/2018 [facility] Heart Rate 119 08/26/2018 [facility] Temperature Oral (F) 98.0 F 08/26/2018 [facility] Weight 202 08/26/2018 [facility] Height 66 08/26/2018 [facility] Diastolic (mm Hg) 100 08/26/2018 [facility] Systolic (mm Hg) 140 06/16/2018 [facility] Heart Rate 91 06/16/2018 [facility] Temperature Oral (F) 97.6 F 06/16/2018 [facility] Weight 203 06/16/2018 [facility] Height 66 06/16/2018 [facility] Diastolic (mm Hg) 80 06/16/2018 [facility] Diastolic (mm Hg) 76 05/20/2018 [facility] Height 67 05/20/2018 [facility] Systolic (mm Hg) 119 05/20/2018 [facility] Weight 205 05/20/2018 [facility] Systolic (mm Hg) 150 05/17/2018 [facility] Heart Rate 112 05/17/2018 [facility] Temperature Oral (F) 98.2 F 05/17/2018 [facility] Weight 202 05/17/2018 [facility] Height 66 05/17/2018 [facility] Diastolic (mm Hg) 90 05/17/2018 [facility] Diastolic (mm Hg) 80 08/18/2017 [facility] Height 67 08/18/2017 [facility] Systolic (mm Hg) 120 08/18/2017 [facility] Weight 200 08/18/2017 [facility] Systolic (mm Hg) 150 06/29/2017 [facility] Heart Rate 102 06/29/2017 [facility] Temperature Oral (F) 98.6 F 06/29/2017 [facility] Weight 200 06/29/2017 [facility] Height 66 06/29/2017 [facility] Diastolic (mm Hg) 98 06/29/2017 [facility] Diastolic (mm Hg) 84 03/14/2017 [facility] Height 67 03/14/2017 [facility] Systolic (mm Hg) 116 03/14/2017 [facility] Systolic (mm Hg) 120 09/04/2016 [facility] Heart Rate 123 09/04/2016 [facility] Temperature Oral (F) 98.3 F 09/04/2016 [facility] Weight 207 09/04/2016 [facility] Height 66 09/04/2016 [facility] Diastolic (mm Hg) 74 09/04/2016 [facility] Diastolic (mm Hg) 86 06/28/2016 [facility] Height 67 06/28/2016 [facility] Systolic (mm Hg) 134 06/28/2016 [facility] Weight 200 06/28/2016 [facility] Diastolic (mm Hg) 78 06/18/2016 [facility] Height 67 06/18/2016 [facility] Systolic (mm Hg) 126 06/18/2016 [facility] Weight 200 06/18/2016 [facility] Diastolic (mm Hg) 84 12/21/2015 [facility] Height 67 12/21/2015 [facility] Systolic (mm Hg) 124 12/21/2015 [facility] Weight 200 12/21/2015 [facility] Height 67 04/27/2014 [facility] Weight 189.25 04/27/2014 [facility] Temperature Oral (F) 97.2 F 04/27/2014 [facility] Respitory Rate 18 04/27/2014 [facility] Systolic (mm Hg) 129 04/27/2014 [facility] Diastolic (mm Hg) 77 04/27/2014 [facility] Heart Rate 96 04/27/2014 [facility] Height 67 03/15/2013 [facility] Weight 190 03/15/2013 [facility] Systolic (mm Hg) 123 03/15/2013 [facility] Diastolic (mm Hg) 64 03/15/2013 [facility] Heart Rate 80 03/15/2013 [facility] Encounters Location Location Details Encounter Type Encounter Number Reason For Visit Attending Provider ADM Date DC Date Status Source [facility] Office Visit [id number] Toshia Monroe, [employer] 04/27/2014 04/27/2014 [facility] Lab Report [id number] Toshia Monroe, [employer] LE[employer] TESTER 05/12/2014 05/12/2014 [facility] Outpatient [id number] SOLO BERMUDEZ 05/10/2015 Active [facility] [place] - [facility] - [id number] Latoya Hernandez, OCC MED PHYSICIAN: [address], [place] [address], Ph. [id number] Latoya Hernandez 12/21/2015 [facility] [place] [facility] - [id number] Juanita Garza, OCC MED PHYSICIAN: [address], [place] [address], Ph. [id number] Juanita Garza 06/18/2016 [facility] [place] [facility] - [id number] Juanita Garza, OCC MED PHYSICIAN: [address], [place] [address], Ph. [id number] Juanita Garza 06/18/2016 [facility] [place] [facility] - [id number] Juanita Garza, OCC MED PHYSICIAN: [address], [place] [address], Ph. [id number] Juanita Garza 06/18/2016 [facility] [place] [facility] - [id number] Juanita Garza, OCC MED PHYSICIAN: [address], [place] [address], Ph. [id number] Juanita Garza 06/18/2016 [facility] [place] [facility] - [id number] Martínez, OCC MED PHYSICIAN-C: [address] [place] [address], Ph. [id number] Dipti Martínez 06/28/2016 [facility] [place] [facility] - [id number] Martínez, OCC MED PHYSICIAN-C: [address] [place] [address], Ph. [id number] Dipti Martínez 06/28/2016 [facility] [place] [facility] - [id number] Martínez, OCC MED PHYSICIAN-C: [address] [facility] [place] [address], Ph. [id number] Dipti Martínez 06/28/2016 [facility] Outpatient [id number] WALLY MARION 02/09/2017 Active [facility] [id number] WALLY MARION 02/13/2017 [facility] [id number] WALLY MARION 02/17/2017 Active [facility] Outpatient [id number] WALLY DONI 02/17/2017 Active [facility] [id number] WALLY MARION 03/02/2017 Active [facility] [place] - [facility] - [id number] Samaria Kuo, OCC MED PHYSICIAN-C: [address] [address], Ph. [id number] Samaria Kuo 03/14/2017 [facility] Outpatient [id number] WALLY MARION 05/04/2017 Active [facility]patient [id number] WALLY DONI 05/12/2017 [facility] [id number] WALLY DONI 05/26/2017 Active [facility] Outpatient [id number] WALLY DONI 06/02/2017 Active [facility] Outpatient [id number] WALLY DONI 06/08/2017 Active [facility] [id number] WALLY DONI 06/16/2017 [facility] [id number] WALLY DONI 06/29/2017 [facility] [id number] WALLY DONI 07/07/2017 Active [facility] [place] [facility] - [id number] Jono Gaston, OCC MED PHYSICIAN-C: [address] [place] [address], Ph. [id number] Jono Gaston 08/18/2017 [facility] Outpatient [id number] WALLY DONI 09/21/2017 Active [facility] Out[facility] [id number] WALLY DONI 12/28/2017 Active [facility] [place] Outpatient [id number] WALLY DONI 01/11/2018 Active [facility] Outpatient [id number] WALLY DONI 01/11/2018 Active [facility] Discharged Inpatient [id number] COREEN LINN MD 04/23/2018 04/24/2018 [facility] Departed Emergency Room [id number] DONTA AKINS MD 04/27/2018 04/27/2018 [facility] Outpatient [id number] WALLY DONI 05/03/2018 Active [facility] [place] [facility] - [id number] Nataly Rodriguez, OCC MED PHYSICIAN-C: [address] [place] [address], Ph. [id number] Nataly Rodriguez 05/20/2018 [facility] Outpatient [id number] WALLY DONI 05/31/2018 [facility] [id number] Wally Doni 08/11/2018 Active [facility] Procedures Procedure Code Date Perfomer Comments Source X-ray of chest, two views [id number] 04/27/2018 [facility] US Doppler renal vessels limited [id number] 04/27/2018 [facility] Computed tomography of brain without radiopaque contrast [id number] 04/23/2018 [facility] Computed tomography of abdomen and pelvis with contrast [id number] 04/23/2018 [facility] vaginal Pap smear results [id number] 03/15/2013 02/23/2012 Medical [facility] mammogram [id number] 03/15/2013 12/28/2012 Medical [facility] Assessment and Plan No Data Provided for This Section Plan of Care Plan of Care Date Source Discharge Date 04/27/18 6:08pm Disposition HOME, SELF-CARE Condition at Discharge Stable Instructions/Education Provided Chest Pain - Noncardiac Chest Pain - Chest Wall Prescriptions See Medication Section 04/27/2018 [facility] Social History Social History Date Source No social history information available. 04/27/2018 [facility] Smoking Status Never Smoker 09/07/2013 [facility] Family History No Data Provided for This Section Advance Directives Order Name Results Value Date Source Advance Directives Advance Directives Directive Response Recorded Date/Time Does the patient have an advance directive? No 04/23/18 11:00pm If yes, is advance directive on file with [facility]? No 04/23/18 11:00pm If not on file with [facility] will patient provide a copy? No 04/23/18 11:00pm Do you have a Directive to Physician? No 04/27/18 1:35pm Do you have a Medical Power of [facility] Shift Lead? No 04/27/18 1:35pm Do you have an out of hospital Do Not Resuscitate Order? No 04/27/18 1:35pm Do you have any special needs we should be aware of? No 04/27/18 1:35pm Do you have a support person here with you today? Yes 04/27/18 1:35pm Did patient receive Notice of Privacy Practices? Yes 04/27/18 1:35pm Did patient receive patient rights and responsibilities? Yes 04/27/18 1:35pm 04/27/2018 [facility] Functional Status No Data Provided for This Section
--- OUTSIDE RECORDS SUMMARY | 2018-10-18 23:07 | XMS REPORT | Encounter Summary ---
Author Organization Unknown Address [address] [place] [address] Phone [phone] Reason for Visit Medical Complaint Instructions 1. Acute sinusitis rapid strep group A, throat sinusitis: care instructions fluticasone 50 mcg/actuation nasal spray,suspension Tessalon Perles 100 mg capsule prednisone 10 mg tablet 2. Generalized aches and pains rapid flu (A+B) 3. Immunization due 4. Body mass index 30+ - obesity body mass index: care instructions Discussion Note Take charge of your health handout given and discussed. SE of medictions discussed and pt verbalized understanding. Plan of Care Patient Instructions How can you care for yourself at home? Take an xqyi-qpw-zrfhziu pain medicine, such as acetaminophen (Tylenol), ibuprofen (Advil, Motrin), or naproxen (Aleve). Read and follow all instructions on the label. If the doctor prescribed antibiotics, take them as directed. Do not stop taking them just because you feel better. You need to take the full course of antibiotics. Be careful when taking pweh-ssf-wezezhb cold or flu medicines and Tylenol at the same time. Many of these medicines have acetaminophen, which is Tylenol. Read the labels to make sure that you are not taking more than the recommended dose. Too much acetaminophen (Tylenol) can be harmful. Breathe warm, moist air from a steamy shower, a hot bath, or a sink filled with hot water. Avoid cold, dry air. Using a humidifier in your home may help. Follow the directions for cleaning the machine. Use saline (saltwater) nasal washes to help keep your nasal passages open and wash out mucus and bacteria. You can buy saline nose drops at a grocery store or drugstore. Or you can make your own at home by adding 1 teaspoon of salt and 1 teaspoon of baking soda to 2 cups of distilled water. If you make your own, fill a bulb syringe with the solution, insert the tip into your nostril, and squeeze gently. Blow your nose. Put a hot, wet towel or a warm gel pack on your face 3 or 4 times a day for 5 to 10 minutes each time. Try a decongestant nasal spray like oxymetazoline (Afrin). Do not use it for more than 3 days in a row. Using it for more than 3 days can make your congestion worse. When should you call for help? Call your doctor now or seek immediate medical care if: You have new or worse swelling or redness in your face or around your eyes. You have a new or higher fever. Watch closely for changes in your health, and be sure to contact your doctor if: You have new or worse facial pain. The mucus from your nose becomes thicker (like pus) or has new blood in it. You are not getting better as expected. Reminders Provider Appointments None recorded. Lab Rapid Flu (A+B) 05/20/2018 [facility] Rapid Strep Group a, Throat 05/20/2018 [facility] Referral None recorded. Procedures None recorded. Surgeries None recorded. Imaging None recorded. Medications Name Start Date fluticasone 50 mcg/actuation nasal spray,suspension [place] 1 spray every day by intranasal route. prednisone 10 mg tablet Take 1 tablet every day by oral route for 5 days. Tessalon Perles 100 mg capsule Take 1 capsule 3 times a day by oral route for 7 days. Medications Administered None recorded. Vitals Height Weight BMI Blood Pressure 5 ft 7 in 205 lbs 32.1 kg/m2 119/76 mm[Hg] Lab Results Date Name Specimen Result Interpretation Description Value Range Status Address Rapid Strep Group a, Throat Result negative [facility]: [address] [place] [address] Swab Location Left and Right tonsillar pillars [facility]: [address] [place] [address] Rapid Flu (A+B) Influenza a negative [facility]: [address] [place] [address] Influenza B negative [facility]: [address] [place] [address] Allergies Code Code System Name Reaction Severity Status Onset 9403 RxNorm Clindamycin Rash Moderate to Severe Active Problems None recorded. Procedures None recorded. Vaccine List Vaccine Type influenza, seasonal, injectable 05/21/2015 Tdap 05/20/2008 Social History Smoking Status Never Smoker Past Encounters 05/20/2018 Acute Sinusitis; Generalized Aches and Pains; Immunization Due; Body Mass Index 30+ - Obesity Yasmil Rodriguez, [facility]-C: [address] [facility], [place] [address], Ph. History of Present Illness Rkzeoie-Midlz-Log Reported By: Patient HPI: Quality: cannot identify. Duration: intermittent, days. Severity: highest temperature 101.9, subjective temperature. Onset/Timing: first recorded last night. Context: no tick/insect bites, no recent travel, no new medications, ill contacts. Associated Symptoms: no rash, no lethargy, fever/chills, headache, muscle aches, tired (fatigue), cough, nasal passage blockage (stuffiness); ear feels stuffed. Modifying Factors OTC medication Note:42 YO female with sore throat, fever, chills, body aches, nasal congestion, runny nose, headache, cough x 3 days Review of Systems:ROS as noted in the HPI Review of Systems Basic Reported By: Patient Physical Exam Adult Basic, Adult Female Complete Reported By: Patient Constitutional: General Appearance: healthy-appearing, well-nourished, well-developed. Level of Distress: moderate distress, acutely ill. Ambulation: ambulating normally Psychiatric: Mental Status: active and alert. Orientation: to time, to place, to person Eyes: Lids and Conjunctivae: non-injected, no discharge, no pallor Cqa-Zvel-Xcwzm-Throat: Ears: no lesions on external ear, no outer ear tenderness, EACs clear, TMs clear. Hearing: no hearing loss. Nose: no lesions on external nose, nares patent, no septal deviation, nasal passages clear, sinus tenderness. Lips, Teeth, and Gums: no mouth or lip ulcers, no bleeding gums, normal dentition Neck: Lymph Nodes: no cervical LAD Lungs: Respiratory effort: no dyspnea, no tachypnea, no use of accessory muscles, no intercostal retractions. Auscultation: breath sounds normal Cardiovascular: Heart Auscultation: RRR, no murmurs Skin: Inspection and palpation: no rash, tattoo
--- OUTSIDE RECORDS SUMMARY | 2018-10-18 23:08 | XMS REPORT ---
Author Author Everton Yanes Organization [employer] Address Unknown Phone Unavailable Care Team Providers Care Retail District Manager Name Role Phone Everton Yanes CP Unavailable Allergies, Adverse Reactions, Alerts Substance Reaction Event Type N.K.D.A. 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 Problem Uterine leiomyoma, unspecified location D25.9 Active Problem Abnormal cervical Papanicolaou smear, unspecified abnormal pap finding R87.619 Active Medications Medication Code System Code Instructions Start Date End Date Status Dosage carvedilol [facility] 00486289226 12.5 mg orally 2 times a day Active 1 tab(s) amlodipine ND 93409191390 2.5 mg orally twice a day Active 1 tab(s) losartan ND 39253291290 50 mg orally once a day Active 1 tab(s) Vital Signs Date/Time: Jun 16, 2018 Blood Pressure Systolic 140 mm Hg Cardiac Monitoring Heart Rate 91 /min Temperature 97.6 F BMI 32.76 Index Weight 203 lbs Height 66 in Blood Pressure Diastolic 80 mm Hg Results No Known Results Summary Purpose [employer] Submission
--- OUTSIDE RECORDS SUMMARY | 2018-10-18 23:08 | XMS REPORT ---
Author Author Everton Yanes Organization [employer] Address Unknown Phone Unavailable Care Team Providers Care Spare Fixer Name Role Phone Everton Yanes CP Unavailable Allergies, Adverse Reactions, Alerts Substance Reaction Event Type N.K.D.A. 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 Problem Uterine leiomyoma, unspecified location D25.9 Active Problem Abnormal cervical Papanicolaou smear, unspecified abnormal pap finding R87.619 Active Medications Medication Code System Code Instructions Start Date End Date Status Dosage cefdinir ND 87862636136 300 mg orally every 12 hours Active 1 cap(s) Z-pack [facility] 81044457386 daily Active use as directed Cheratussin AC [facility] 85902924740 10 mg-100 mg/5 mL orally every 6 hours prn cough Active 5-10 mL Cheratussin AC ND 62131434846 10 mg-100 mg/5 mL orally every 6 hours prn cough Active 5 mL carvedilol [facility] 49316240094 12.5 mg orally 2 times a day Active 1 tab(s) ProAir HFA [facility] 84799352566 CFC free 90 mcg/inh inhaled q4-6 hours prn wheezing Active 2 puff(s) amlodipine ND 72020517528 5 mg orally twice a day Active 1 tab(s) Vital Signs Date/Time: September 06, 2018 Blood Pressure Systolic 132 mm Hg Cardiac Monitoring Heart Rate 106 /min Temperature 97.9 F BMI 32.76 Index Weight 203 lbs Height 66 in Blood Pressure Diastolic 80 mm Hg Results No Known Results Summary Purpose [employer] Submission
--- OUTSIDE RECORDS SUMMARY | 2018-10-18 23:08 | XMS REPORT ---
Author Author Everton Yanes Organization [employer] Address Unknown Phone Unavailable Care Team Providers Care Electric Solderer Name Role Phone Everton Yanes CP Unavailable [...] Instructions Start Date End Date Status Dosage Cheratussin AC [facility] 49928729026 10 mg-100 mg/5 mL orally every 6 hours prn cough Active 5 mL Z-pack [facility] 38865279668 daily Active use as directed carvedilol [facility] 67729510409 12.5 mg orally 2 times a day Active 1 tab(s) amlodipine [facility] 57374152393 5 mg orally twice a day Active 1 tab(s) Vital Signs Date/Time: August 26, 2018 Blood Pressure Systolic 160 mm Hg Cardiac Monitoring Heart Rate 119 /min Temperature 98.0 F BMI 32.60 Index Weight 202 lbs Height 66 in Blood Pressure Diastolic 100 mm Hg Results No Known Results Summary Purpose [employer] Submission
--- OUTSIDE RECORDS SUMMARY | 2018-10-18 23:08 | XMS REPORT ---
Author Author Everton Yanes Organization [employer] Address Unknown Phone Unavailable Care Team Providers Care Drafter Civil Engineering Name Role Phone Everton Yanes CP Unavailable Allergies, Adverse Reactions, Alerts Substance Reaction Event Type N.K.D.A. Info Not Available Non Drug Allergy Problems Problem Type Condition Code Onset Dates Condition Status Assessment Thrombocytosis D47.3 Active Assessment BMI 32.0-32.9,adult Z68.32 Active Problem Thrombocytosis D47.3 Active Problem Essential hypertension I10 Active Problem BMI 32.0-32.9,adult Z68.32 Active Assessment Labile hypertension R09.89 Active Problem Uterine leiomyoma, unspecified location D25.9 Active Problem Abnormal cervical Papanicolaou smear, unspecified abnormal pap finding R87.619 Active Medications Medication Code System Code Instructions Start Date End Date Status Dosage amlodipine [facility] 94795295838 2.5 mg orally twice a day Active 1 tab(s) Metoprolol Succinate ER ND 85088005454 25 mg orally once a day Active 1 tab(s) losartan ND 65438280073 50 mg orally once a day Active 1 tab(s) Metoprolol Succinate ER ND 17386905990 25 mg orally once a day Active 1 tab(s) Vital Signs Date/Time: May 17, 2018 Blood Pressure Systolic 150 mm Hg Cardiac Monitoring Heart Rate 112 /min Temperature 98.2 F BMI 32.60 Index Weight 202 lbs Height 66 in Blood Pressure Diastolic 90 mm Hg Results Name Result Date Reference Range Unit Abnormality Flag PATHOLOGIST REVIEW OF PERIPHERAL SMEAR (833) BMP - BASIC METABOLIC PANEL W/EGFR (57619) ----eGFR 121 01553675 > OR=60 mL/min/1.73m2 N ----eGFR NON-AFR. GUINEAN 105 [id number] > OR=60 mL/min/1.73m2 N ----SODIUM 140 20180517 135-146 mmol/L N ----CALCIUM 9.7 20180517 8.6-10.2 mg/dL N ----BUN/CREATININE RATIO 8 20180517 6-22 (calc) N ----GLUCOSE 138 20180517 65-139 mg/dL N ----CREATININE 0.72 20180517 0.50-1.10 mg/dL N ----UREA NITROGEN (BUN) 6 20180517 7-25 mg/dL L ----CARBON DIOXIDE 28 20180517 20-32 mmol/L N ----POTASSIUM 4.3 20180517 3.5-5.3 mmol/L N ----CHLORIDE 102 20180517 98-110 mmol/L N CBC (INCLUDES DIFF/PLT) (2897) ----ABSOLUTE BASOPHILS 38 20180517 0-200 cells/uL N ----ABSOLUTE EOSINOPHILS 129 20180517 15-500 cells/uL N ----LYMPHOCYTES 28.7 20180517 % N ----NEUTROPHILS 61.6 20180517 % N ----PLATELET COUNT 470 20180517 140-400 Thousand/uL H ----EOSINOPHILS 1.7 20180517 % N ----RDW 12.2 20180517 11.0-15.0 % N ----MONOCYTES 7.5 20180517 % N ----MCHC 33.4 20180517 32.0-36.0 g/dL N ----MCH 30.0 20180517 27.0-33.0 pg N ----MCV 89.8 20180517 80.0-100.0 fL N ----ABSOLUTE NEUTROPHILS 4682 20180517 3061-3088 cells/uL N ----MPV 10.0 20180517 7.5-12.5 fL N ----ABSOLUTE MONOCYTES 570 20180517 200-950 cells/uL N ----ABSOLUTE LYMPHOCYTES 2181 20180517 850-3900 cells/uL N ----BASOPHILS 0.5 43020920 % N ----WHITE BLOOD CELL COUNT 7.6 20180517 3.8-10.8 Thousand/uL N ----RED BLOOD CELL COUNT 4.43 20180517 3.80-5.10 Million/uL N ----HEMOGLOBIN 13.3 20180517 11.7-15.5 g/dL N ----HEMATOCRIT 39.8 20180517 35.0-45.0 % N C-REACTIVE PROTEIN (4420) ----C-REACTIVE PROTEIN 10.9 20180517 <8.0 mg/L H CONSULT, SPECIMEN A HEPATIC FUNCTION PANEL (75953) ----ALKALINE PHOSPHATASE 129 20180517 33-115 U/L H ----BILIRUBIN, INDIRECT 0.5 20180517 0.2-1.2 mg/dL (calc) N ----BILIRUBIN, DIRECT 0.2 20180517 < OR=0.2 mg/dL N ----BILIRUBIN, TOTAL 0.7 20180517 0.2-1.2 mg/dL N ----ALT 57 20180517 6-29 U/L H ----ALBUMIN/GLOBULIN RATIO 1.7 20180517 1.0-2.5 (calc) N ----GLOBULIN 2.6 20180517 1.9-3.7 g/dL (calc) N ----ALBUMIN 4.4 20180517 3.6-5.1 g/dL N ----PROTEIN, TOTAL 7.0 20180517 6.1-8.1 g/dL N ----AST 31 20180517 10-30 U/L H PATHOLOGY CONSULTATION Summary Purpose [employer] Submission
--- OUTSIDE RECORDS SUMMARY | 2018-10-18 23:08 | XMS REPORT ---
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
[2018-10-18] MEDS ORDERED: ONDANSETRON HCL INJ 2MG/ML 2ML 2 MG/ML VIAL IV STA (23:21)
[2018-10-18] MEDS ORDERED: MORPHINE SULFATE INJ 4 MG/ML INJ 1ML IV PRN (23:30)
[2018-10-18] MEDS ORDERED: SODIUM CHLORIDE 0.9% 1000ML 1,000 ML IV SCH (23:30)
[2018-10-18 23:42] LABS: BASOPHILS # (AUTO) 0.1 (0.0-0.1); BASOPHILS % 0.8 % (0.0-1.0); EOSINOPHILS # (AUTO) 0.5 (0.0-0.4); EOSINOPHILS % 5.8 % (0.0-6.0); HEMATOCRIT 41.3 % (34.2-44.1); HEMOGLOBIN 14.5 g/dL (12.0-16.0); LYMPHOCYTES % 33.4 % (18.0-39.1); MEAN CORPUSCULAR HGB CONC 35.1 g/dL (31-35); MEAN CORPUSCULAR VOLUME 88.4 fL (81-99); MONOCYTES # (AUTO) 0.7 (0.2-0.8); MONOCYTES % 7.4 % (4.4-11.3); NEUTROPHILS # (AUTO) 4.8 (2.1-6.9); NEUTROPHILS % 52.3 % (38.7-80.0); PLATELET COUNT 506 x10e3/uL (140-360); RED BLOOD COUNT 4.67 x10e6/uL (3.6-5.1); RED CELL DISTRIBUTION WIDTH 12.6 % (11.7-14.4)
[2018-10-18 23:44] LABS: BILIRUBIN,URINE NEGATIVE (NEGATIVE); CLARITY,URINE SL CLOUDY (CLEAR); COLOR,URINE YELLOW (YELLOW); KETONES,URINE NEGATIVE (NEGATIVE); LEUKOCYTE ESTERASE ,URINE NEGATIVE (NEGATIVE); NITRITE,URINE NEGATIVE (NEGATIVE); PROTEIN,URINE DIPSTICK NEGATIVE (NEGATIVE); URINE UROBILINOGEN 0.2 mg/dL (0.2 - 1)
[2018-10-18 23:47] LABS: PREGNANCY TEST, URINE NEGATIVE (NEGATIVE)
[2018-10-18 23:55] LABS: BACTERIA,URINE RARE /HPF; EPITHELIAL CELLS,URINE RARE /LPF; RBC,URINE 0-5 /HPF (0-5); WBC,URINE (MAN) 0-5 /HPF (0-5)
[2018-10-19 00:07] LABS: ALANINE AMINOTRANSFERASE 51 IU/L (0-55); ALBUMIN 4.2 g/dL (3.5-5.0); ALBUMIN/GLOBULIN RATIO 1.3 (0.8-2.0); ALKALINE PHOSPHATASE 124 IU/L (40-150); ANION GAP 15.4 mmol/L (8-16); BLOOD UREA NITROGEN 8 mg/dL (7-26); BUN/CREATININE RATIO 10 (6-25); CALCIUM 9.8 mg/dL (8.4-10.2); CARBON DIOXIDE 23 mmol/L (22-29); CHLORIDE 104 mmol/L (98-107); CREATININE, SERUM 0.82 mg/dL (0.57-1.11); EST GLOMERULAR FILTRATION RATE > 60 ML/MIN (60-); GLUCOSE 156 mg/dL (74-118); POTASSIUM 3.4 mmol/L (3.5-5.1); SODIUM 139 mmol/L (136-145)
[2018-10-19] MEDS ORDERED: SODIUM CHLORIDE 0.9% 50ML 50 ML ONE (00:30)
[2018-10-19] MEDS ORDERED: IOPAMIDOL 370 MG/ML 200 ML INFUS..BTL INJ ONE (00:30)
--- NOTE | 2018-10-19 01:30 | Diagnostic Imaging Report ---
CT Abdomen And Pelvis with Intravenous Contrast INDICATION: ^RUQ pain TECHNIQUE: Thin collimation axial images obtained from the diaphragm to the level of the pubic symphysis following the uneventful administration of 100 cc of low osmolar, nonionic intravenous contrast. Dose reduction techniques used: Automated exposure control, adjustment of the mAs and/or kVp according to patient size, standardized low-dose protocol, and/or iterative reconstruction technique. RADIATION DOSE: Total DLP: 719.2 mGy*cm Estimated effective dose: (DLP x 0.015 x size factor) mSv CTDIvol has been reviewed. It is below the limits set by the Radiation Protocol Committee (RPC). COMPARISON: CT abdomen/pelvis 04/23/2018. ABDOMEN FINDINGS: Lung Bases: Punctate calcified granuloma in the right lower lobe is stable. Visualized portion of the mediastinum is normal. Liver: Steatosis. No evidence for mass. The right lobe measures 21 cm in length. Gallbladder: Present and is distended with subcentimeter dependently layering gallstones. No gallbladder wall thickening or pericholecystic fluid. Biliary tree: No biliary ductal dilatation. Pancreas: Normal attenuation without mass or ductal dilatation. Spleen: Normal in size. No evidence of mass. Adrenal Glands: No evidence for mass. Kidneys: Right: Normal enhancement. No soft tissue mass. No hydronephrosis. Left: Normal enhancement. No soft tissue mass. No hydronephrosis. Lymph Nodes: No enlarged abdominal or periaortic lymph nodes. Aorta: Normal in diameter PELVIS FINDINGS: Bowel: Stomach: Normal. Small Bowel: Normal in caliber with normal wall thickness. Large Bowel: Normal in caliber with normal wall thickness. Appendix: Not visualized and may be absent or collapsed. Bladder: Normal. The uterus is present and normal in morphology. No adnexal mass. Peritoneum/retroperitoneum: No free fluid or fluid collection. Bones: No focal osseous lesions. IMPRESSION: 1. Distended gallbladder with multiple subcentimeter gallstones. No biliary ductal dilatation or CT findings of acute cholecystitis. 2. Steatosis and hepatomegaly. 3. No evidence for bowel obstruction or inflammation. Nonvisualization of the appendix. Signed by: Dr. Reema Ybarra MD on 10/19/2018 1:26 AM
[2018-10-19 02:37] VITALS: BP 124/74
== END 2018-10-19 02:39 | disposition home or self-care (01) ==
LOC: ER 23:04
DX: R10.11 Right upper quadrant pain (principal); R11.2 Nausea with vomiting, unspecified; K80.00 Calculus of gallbladder with acute cholecystitis without obstruction
CPT/HCPCS: 36415; 74177; 80053; 81001; 81025; 83690; 85025; 99283; J2270; J2405; Q9967

== ENCOUNTER 2020-07-03 10:16 | Emergency (ER) | payer BC ==
[~2020-07-03] VITALS: Ht 170.2 cm; Wt 95.3 kg
[2020-07-03] MEDS ORDERED: ONDANSETRON HCL INJ 2MG/ML 2ML 2 MG/ML VIAL IV STA ×2 (10:29→13:24)
[2020-07-03] MEDS ORDERED: MORPHINE SULFATE INJ 4 MG/ML INJ 1ML IV PRN (10:30)
[2020-07-03] MEDS ORDERED: GUAIFENESIN/DEXTROMETHORPHAN LIQD 5 ML UDC PO PRN (10:30)
[2020-07-03] MEDS ORDERED: ASPIRIN 81 MG CHEW TAB PO ONE (10:30)
[2020-07-03 11:14] LABS: BASOPHILS # (AUTO) 0.1 (0.0-0.1); BASOPHILS % 0.8 % (0.0-1.0); EOSINOPHILS # (AUTO) 0.3 (0.0-0.4); EOSINOPHILS % 3.7 % (0.0-6.0); HEMATOCRIT 41.3 % (34.2-44.1); HEMOGLOBIN 13.8 g/dL (12.0-16.0); LYMPHOCYTES # (AUTO) 2.1 (1.0-3.2); LYMPHOCYTES % 28.7 % (18.0-39.1); MEAN CORPUSCULAR HGB CONC 33.4 g/dL (31-35); MEAN CORPUSCULAR VOLUME 89.8 fL (81-99); MONOCYTES # (AUTO) 0.8 (0.2-0.8); MONOCYTES % 10.4 % (4.4-11.3); NEUTROPHILS % 55.7 % (38.7-80.0); PLATELET COUNT 348 x10e3/uL (140-360); RED CELL DISTRIBUTION WIDTH 12.7 % (11.7-14.4)
[2020-07-03 11:50] LABS: ALANINE AMINOTRANSFERASE 61 IU/L (0-55); ALBUMIN 4.4 g/dL (3.5-5.0); ALKALINE PHOSPHATASE 131 IU/L (40-150); ANION GAP 17.9 mmol/L (8-16); BLOOD UREA NITROGEN 6 mg/dL (7-26); BUN/CREATININE RATIO 7 (6-25); CALCIUM 9.4 mg/dL (8.4-10.2); CARBON DIOXIDE 24 mmol/L (22-29); CHLORIDE 101 mmol/L (98-107); CREATINE KINASE 96 IU/L (29-168); CREATININE, SERUM 0.85 mg/dL (0.57-1.11); EST GLOMERULAR FILTRATION RATE > 60 ML/MIN (60-); GLUCOSE 158 mg/dL (74-118); POTASSIUM 3.9 mmol/L (3.5-5.1); SODIUM 139 mmol/L (136-145)
[2020-07-03 11:55] LABS: INR 0.83; PROTHROMBIN TIME 11.9 seconds (11.9-14.5)
[2020-07-03] MEDS ORDERED: SODIUM CHLORIDE 0.9% 1000ML 1,000 ML IV SCH (12:15)
[2020-07-03] MEDS ORDERED: PREDNISONE20 MG PO (13:17)
[2020-07-03] MEDS ORDERED: TYLENOL # 31 EA PO (13:17)
[2020-07-03] MEDS ORDERED: MORPHINE SULFATE INJ 2 MG/ML SYR IV STA (13:24)
== END 2020-07-03 13:31 | disposition home or self-care (01) ==
LOC: ER 11:21
DX: J40 Bronchitis, not specified as acute or chronic (principal); R05 Cough; I10 Essential (primary) hypertension
CPT/HCPCS: 36415; 71045; 80053; 82550; 82553; 83605; 84484; 84702; 85025; 85379; 85610; 87040; 99284; J2270; J2405; J7030